=== PATIENT | female | born 1980 | race Caucasian/White ===

== ENCOUNTER 2023-01-09 19:13 | Inpatient (IN) | payer MEDICAID ==
[~2023-01-09] VITALS: Ht 152.4 cm; Wt 76.2 kg
[2023-01-09] MEDS ORDERED: NALBUPHINE HCL 10 MG/ML AMP IVP PRN (21:00)
[2023-01-09] MEDS ORDERED: TERBUTALINE SULFATE 1 MG/ML VIAL SUBCUT ONE (21:00)
[2023-01-09] MEDS ORDERED: OXYTOCIN/0.9 % SODIUM CHLORIDE 1,000 ML IV SCH (21:00)
[2023-01-09 22:07] LABS: BASOPHILS % (AUTO) 0.3 % (0.0-2.0); EOSINOPHILS # (AUTO) 0.1 K/uL (0.0-0.4); HEMATOCRIT 37.4 % (36-48); HEMOGLOBIN 12.4 g/dL (12.0-16.0); LYMPHOCYTES # (AUTO) 1.8 K/uL (1.0-5.5); LYMPHOCYTES % (AUTO) 23.1 % (20.5-51.5); MEAN CORPUSCULAR HEMOGLOBIN 30 pg (27-31); MEAN CORPUSCULAR HGB CONC 33 % (32-36); MEAN CORPUSCULAR VOLUME 89 fL (79.0-98.0); MONOCYTES # (AUTO) 0.7 K/uL (0.0-1.0); MONOCYTES % (AUTO) 8.3 % (1.7-9.3); NEUTROPHILS # (AUTO) 5.3 K/uL (1.8-7.7); NEUTROPHILS % (AUTO) 67.3 % (40.0-70.0); PLATELET COUNT (AUTO) 172 K/uL (130-430); RED CELL DISTRIBUTION WIDTH 15.5 % (9.0-15.0); WHITE BLOOD COUNT (AUTO) 7.9 K/uL (4.8-10.8)
[2023-01-09] MEDS ORDERED: ROPIVACAINE HCL/PF 0.2% 200 ML ONE (22:46)
[2023-01-09] MEDS ORDERED: fentaNYL CITRATE/PF 100 MCG/2 ML AMP ONE (22:46)
[2023-01-09] MEDS ORDERED: FENT2mCg/mL-ROPIVA0.2%/NS EPID 200 ML EP SCH (23:15)
[2023-01-09] MEDS ORDERED: LR 500 ML IV ONE (23:15)
[2023-01-10 01:04] VITALS: BP_SYST 115
[2023-01-10] MEDS: LR 1,000 ML IV SCH ×2 (02:11→04:05)
[2023-01-10] MEDS ORDERED: NALOXONE HCL 0.4 MG/ML AMP (NARCAN) ONE (04:19)
[2023-01-10] MEDS ORDERED: LIGHT MINERAL OIL 10 ML VIAL MC ONE (04:19)
[2023-01-10] MEDS ORDERED: LIDOCAINE PF 1% 30ML(POUR BTL) INJ ONE (04:19)
[2023-01-10] MEDS ORDERED: METHYLERGONOVINE MALEATE 0.2 MG/ML AMP IM ONE (05:00)
[2023-01-10] MEDS ORDERED: OXYTOCIN 10 UNIT/ML VIAL IM ONE (05:00)
[2023-01-10] MEDS ORDERED: ONDANSETRON HCL 4 MG/2 ML VIAL IVP PRN (06:00)
[2023-01-10] MEDS ORDERED: DERMOPLAST SPRAY TP PRN (08:15)
[2023-01-10] MEDS ORDERED: LANOLIN 7 GM OINT. TP PRN (08:15)
[2023-01-10] MEDS ORDERED: WITCH HAZEL LEAF 1 MED.PAD MED.PAD TP PRN (08:15)
[2023-01-10] MEDS ORDERED: OXYTOCIN/0.9 % SODIUM CHLORIDE 1,000 ML IV ONE (08:15)
[2023-01-10] MEDS: DOCUSATE SODIUM 100 MG CAPSULE PO SCH (09:05)
[2023-01-10] MEDS: IBUPROFEN 600 MG TABLET PO SCH ×2 (12:05→20:19)
[2023-01-10] MEDS ORDERED: OXYCODONE/ACETAMINOPHEN 5-325 TABLET PO PRN (20:45)
[2023-01-10] MEDS ORDERED: SENNOSIDES 8.6 MG TABLET PO SCH (21:00)
[2023-01-11] MEDS: IBUPROFEN 600 MG TABLET PO SCH (02:34)
[2023-01-11] MEDS: OXYCODONE/ACETAMINOPHEN *10*mg/325 mg TABLET PO PRN ×2 (06:55→12:31)
[2023-01-11] MEDS: DOCUSATE SODIUM 100 MG CAPSULE PO SCH (10:20)
[2023-01-14 23:07] LABS: FTA-Ab (T PALLIDUM) Non Reactive (Non Reactive)
== END 2023-01-11 16:45 | disposition home or self-care (01) | DRG 560 ==
LOC: SPU 19:13 → OBSVTOIN 19:13 → SPU 20:45
PROVIDERS: ADMIT Obstetrics & Gynecology; ATTEND Obstetrics & Gynecology
PROC: 10E0XZZ Delivery of Products of Conception, External Approach (ICD-10-PCS; principal; 2023-01-10)
PROC: 0W8NXZZ Division of Female Perineum, External Approach (ICD-10-PCS; 2023-01-10)
PROC: 3E0R3BZ Introduction of Anesthetic Agent into Spinal Canal, Percutaneous Approach (ICD-10-PCS; 2023-01-10)
PROC: 00HU33Z Insertion of Infusion Device into Spinal Canal, Percutaneous Approach (ICD-10-PCS; 2023-01-10)
DX: O77.0 Labor and delivery complicated by meconium in amniotic fluid (principal); Z37.0 Single live birth; Z3A.39 39 weeks gestation of pregnancy
CPT/HCPCS: 36415; 85025; 86592; 86780; 86886; 86900; 86901; J2001; J2210; J2310; J2590; J3010; J7120